=== PATIENT | female | born 1950 ===

== ENCOUNTER 2018-02-24 06:14 | Inpatient (IN) | payer MEDICARE ==
[~2018-02-24] VITALS: Ht 162.6 cm; Wt 62.4 kg
[2018-02-24] VITALS (13 sets, daily range): BP systolic 109–151; BP diastolic 66–84; PULSE 61–81; RESP 18–20; TEMP 97.7–98.6; O2SAT 91–97
[2018-02-24] MEDS ORDERED: AMLO2.5T PO (07:11)
[2018-02-24] MEDS ORDERED: LEVO5TAB8 PO (07:11)
[2018-02-24] MEDS: SODIUM CHLOR 0.9% 1000 ML INJ 1,000 ML IV SCH (07:24)
[2018-02-24] MEDS ORDERED: MIDAZOLAM HCL 2 MG/2 ML VIAL ONE ×2 (07:50→08:19)
--- NOTE | 2018-02-24 08:46 | PD.RAD ---
Post CT Procedure Prog Note Pre Procedure Diagnosis: (1) Mass of left lung Post Procedure Diagnosis: (1) Mass of left lung Procedure Date: Feb 24, 2018 Supervising Radiologist: Art Ortiz Anesthesia: Conscious Sedation Plan of Activity Patient to Unit: R[facility]U Patient Condition: Good See PACS Report for procedural detail/treatment Biopsy Imaging Guidance: CT Side: Left Biopsy Procedure: Lung Site: left upper lobe Specimen: Core Biopsy Plan to [facility] for monitoring and CXR then discharge in 4 hours. Art Ortiz MD Feb 24, 2018 08:46
--- NOTE | 2018-02-24 10:16 | RADRPT ---
EXAM DATE: 02/24/2018 9:19 AM EDT AGE/SEX: 67 years / Female INDICATIONS: Left lung mass. CLINICAL DATA: This is the patient's initial encounter. Patient reports that signs and symptoms have been present for 1 day and indicates a pain score of 0/10. MEDICAL/SURGICAL HISTORY: Hypertension. None. COMPARISON: [facility], CT CHEST W AND W/O CONTRAST, 02/11/2018. . BIOPSY SITE: Left lung left upper lobe MEDICATION(S): 4 mg midazolam (Versed) IV 100 mcg fentanyl (Sublimaze) IV DEVICE(S): 20 gauge Temno core biopsy needle . . PROCEDURE: CT guided Left lung left upper lobe biopsy Prior to the procedure informed consent was obtained. Any appropriate prior imaging studies were rev iewed. Using automated exposure control and adjustment of the mA and/or kV according to patient size , radiation dose was kept as low as reasonably achievable to obtain optimal diagnostic quality images . DICOM format image data is available electronically for review and comparison. The site was prepped in a sterile fashion. Full sterile technique was used, including cap, mask, silvio rile gloves and gown and a large sterile sheet. Hand hygiene and 2% chlorhexidine and/or betadine/al cohol prep was utilized per protocol for cutaneous antisepsis. The skin and subcutaneous tissues wer e infiltrated with local anesthetic solution. With CT guidance the left upper lobe lung mass was localized. Biopsy was performed using the prescrib ed needle as above. Adequate hemostasis was obtained with compression at the puncture site. Follow-up CT scan reveals no pneumothorax or acute abnormality. Conscious sedation was performed with the prescribed dosages and duration as above in the presence of an independent trained radiology nurse to assist in the monitoring of the patient. EKG and oximetry remained stable throughout the procedure. The patient tolerated the procedure well and there were no complications. The patient was sent to Radiology Outpatient Unit in stable condition. FINDINGS: CT images document a smooth mildly lobulated mass in the left upper lobe measuring approximately 3.9 x 3.4 cm. CONCLUSION: 1. Uncomplicated CT guided biopsy of the left upper lobe lung mass. Electronically signed by: Art Ortiz MD 02/24/2018 10:14 AM EDT
--- NOTE | 2018-02-24 10:20 | RADRPT ---
EXAM DATE: 02/24/2018 10:13 AM EDT AGE/SEX: 67 years / Female INDICATIONS: Status post left lung biopsy. CLINICAL DATA: This is the patient's subsequent encounter. Patient reports that signs and symptoms h ave been present for 1 day and indicates a pain score of 0/10. MEDICAL/SURGICAL HISTORY: Hypertension. . COMPARISON: [facility] – [place], CT NEEDLE BIOPSY LUNG, LEFT, 02/24/2018. . FINDINGS: Portable upright expiratory view of the chest demonstrates moderate size left pneumothorax following left upper lobe lung mass biopsy. The left lung mass remains visualized. No pleural effusion is prese nt. CONCLUSION: Moderate size left pneumothorax following recent left lung mass biopsy. Electronically signed by: Art Ortiz MD 02/24/2018 10:19 AM EDT
--- NOTE | 2018-02-24 11:16 | RADRPT ---
EXAM DATE: 02/24/2018 11:08 AM EDT AGE/SEX: 67 years / Female INDICATIONS: Status post left lung biopsy. Evaluate for pneumothorax. CLINICAL DATA: This is the patient's subsequent encounter. Patient reports that signs and symptoms h ave been present for 1 day and indicates a pain score of 0/10. MEDICAL/SURGICAL HISTORY: Hypertension. . COMPARISON: [facility] – [place], [place]ST EXPIRATION ONLY, 02/24/2018. . FINDINGS: Left-sided pneumothorax appears slightly larger when compared to the prior currently measuring approx imately 5.4 cm in depth. No midline shift. 3.4 cm left perihilar mass lesion is again identified. Rig ht lung is clear. Heart size is normal. Osseous structures are intact CONCLUSION: 1. Interval enlargement of the left-sided pneumothorax. No element of tension, however. 2. 3.4 cm left perihilar mass lesion. Electronically signed by: Flo Tejada MD 02/24/2018 11:15 AM EDT
[2018-02-24] MEDS ORDERED: fentaNYL CITRATE 250 MCG/5 ML AMP ONE (11:59)
[2018-02-24] MEDS ORDERED: MIDAZOLAM HCL 5 MG/5 ML VIAL ONE (11:59)
--- NOTE | 2018-02-24 12:42 | PD.RAD ---
Post Procedure Progress Note Pre Procedure Diagnosis: (1) Pneumothorax after biopsy (2) Mass of left lung Post Procedure Diagnosis: (1) Pneumothorax after biopsy (2) Mass of left lung Procedure Date: Feb 24, 2018 Supervising Radiologist: Rudolph Mendieta JR Proceduralist/Assist: Emely Blakely, RT(R)(), Marcus Easley RT(R) Anesthesia: Conscious Sedation Plan of Activity Patient to Unit: ROPU Patient Condition: Good See PACS Report for procedural detail/treatment Drainage Procedure Procedure 1 Side: Left Procedure Type: Chest Tube Non-Tunneled Procedure: Placement Portuguese: 10 Drainage: Pleurovac Findings: Enlarging left pneumothorax after biopsy. Placed left chest tube. Sutured in place. Plan Admit for observation. Jr. Anam,Rudolph Melvin MD Feb 24, 2018 12:42
--- NOTE | 2018-02-24 13:20 | RADRPT ---
EXAM DATE: 02/24/2018 1:08 PM EDT AGE/SEX: 67 years / Female INDICATIONS: Post left chest tube placement. Evaluate for pneumothorax. CLINICAL DATA: This is the patient's subsequent encounter. Patient reports that signs and symptoms h ave been present for 1 day and indicates a pain score of 0/10. MEDICAL/SURGICAL HISTORY: Hypertension. None. [place] [facility] [place]. . FINDINGS: Upright expiratory portable view of the chest demonstrates a normal-sized cardiac silhouette. A left chest tube has been placed in the superior left hemithorax. The pneumothorax has resolved. The left m id lung mass remains visualized. Right lung demonstrates no abnormality. CONCLUSION: 1. The left pneumothorax has resolved following chest tube placement. 2. The left mid lung mass remains visualized. Electronically signed by: Art Ortiz MD 02/24/2018 1:19 PM EDT
--- NOTE | 2018-02-24 13:31 | HHI.HP ---
HPI Service [facility] Hospitalists Primary Care Physician Dr. Abran Bearden Admission Diagnosis Pneumothorax s/p biopsy Chief Complaint: SOB Travel History International Travel<30 Days: No Contact w/Intl Traveler <30 Da: No Traveled to Known Affected Are: No History of Present Illness Mrs. Hart is a pleasant 67 y/o female with HTN, hx of tobacco use and seasonal allergies who was evaluated in interventional radiology today for a CT guided lung biopsy which was performed this morning. She reports that she had an outpt imaging study of the chest which noted the lung mass about 2 weeks ago. She states that this was performed initially because of a "lump" on her xiphoid. She was sent for CT guided biopsy of the lung mass. The CT images noted a smooth mildly lobulated mass in the left upper lobe measuring approximately 3.9 x 3.4cm. Biopsy was performed but unfortunately the pt developed a left sided pneumothorax and a chest tube was placed. The [facility] Hospitalist team was requested to admit the pt for observation and medical management. Review of Systems Constitutional: DENIES: Fever, Chills Respiratory: DENIES: Cough Cardiovascular: DENIES: Chest pain, Lower Extremity Edema Gastrointestinal: DENIES: Abdominal pain, Nausea, Vomiting Genitourinary: DENIES: Urinary incontinence Integumentary: DENIES: Rash Neurologic: DENIES: Headache Psychiatric: DENIES: Confusion Past Family Social History Past Medical History Lung mass HTN Seasonal allergies Past Surgical History None reported Reported Medications Xyzal (Levocetirizine Dihydrochloride) 5 Mg Tablet 1 Tab PO DAILY Amlodipine (Amlodipine Besylate) 2.5 Mg Tab 2.5 Mg PO DAILY Allergies: Coded Allergies: lisinopril (Verified Allergy, Intermediate, Cough, 02/24/18) Family History Father at 86 y/o with prostate cancer, epilepsy, arthritis Mother living, 89 y/o, with type 2 diabetes, schizophrenia Social History (+)Tobacco use, pt has smoked 1ppd x 40+ years Denies any alcohol or illicit drug use Physical Exam Vital Signs Vital Signs Date Time Temp Pulse Resp B/P (MAP) Pulse Ox O2 Delivery O2 Flow Rate FiO2 02/24/18 12:54 63 20 132/84 (100) 95 02/24/18 12:39 61 18 133/82 (99) 95 02/24/18 11:05 67 18 123/75 (91) 95 02/24/18 10:35 68 18 109/69 (82) 93 02/24/18 10:05 69 18 128/76 (93) 92 02/24/18 09:35 67 18 120/73 (89) 93 02/24/18 09:05 66 18 129/75 (93) 95 02/24/18 08:55 Nasal Cannula 2.00 02/24/18 08:50 97.9 72 18 114/66 (82) 91 02/24/18 07:28 94 Room Air 02/24/18 07:09 97.7 81 20 151/81 (104) 94 Physical Exam GENERAL: This is a well-nourished, well-developed patient, in no apparent distress. SKIN: No rashes, ecchymoses or lesions. Cool and dry. HEENT: Atraumatic. Normocephalic. No temporal or scalp tenderness. No scleral icterus. Airway patent. NECK: Trachea midline, supple, nontender. CARDIO: Regular. RESP: CTA bilaterally. CT in place on the left side ABD: +BS, soft, non-tender, nondistended. EXT: Extremities without clubbing, cyanosis, or edema. NEURO: Awake and alert. Motor and sensory grossly within normal limits. Normal speech. Imaging Last Impressions Chest X-Ray 02/24/18 1100 Signed Impressions: CONCLUSION: 1. Interval enlargement of the left-sided pneumothorax. No element of tension, however. 2. 3.4 cm left perihilar mass lesion. Lung Biopsy CT 02/24/18 0000 Signed Impressions: CONCLUSION: 1. Uncomplicated CT guided biopsy of the left upper lobe lung mass. Caprini VTE Risk Assessment Caprini VTE Risk Assessment: Mod/High Risk (score >= 2) Caprini Risk Assessment Model Point Value = 1 Point Value = 2 Point Value = 3 Point Value = 5 Age 41-60 Minor surgery BMI > 25 kg/m2 Swollen legs Varicose veins or History of unexplained or recurrent spontaneous Oral contraceptives or hormone replacement Sepsis (< 1 month) Serious lung disease, including pneumonia (< 1 month) Abnormal pulmonary function Acute myocardial infarction Congestive heart failure (< 1 month) History of inflammatory bowel disease Medical patient at bed rest Age 61-74 Arthroscopic surgery Major open surgery (> 45 min) Laparoscopic surgery (> 45 min) Malignancy Confined to bed (> 72 hours) Immobilizing plaster cast Central venous access Age >= 75 History of VTE Family history of VTE Factor V Leiden Prothrombin [id number] Lupus anticoagulant Anticardiolipin antibodies Elevated serum homocysteine Heparin-induced thrombocytopenia Other congenital or acquired thrombophilia Stroke (< 1 month) Elective arthroplasty Hip, pelvis, or leg fracture Acute spinal cord injury (< 1 month) Prophylaxis Regimen Total Risk Factor Score Risk Level Prophylaxis Regimen 0-1 Low Early ambulation 2 Moderate Order ONE of the following: *Sequential Compression Device (SCD) *Heparin 5000 units SQ BID 3-4 Higher Order ONE of the following medications: *Heparin 5000 units SQ TID *Enoxaparin/Lovenox 40 mg SQ daily (WT < 150 kg, CrCl > 30 mL/min) *Enoxaparin/Lovenox 30 mg SQ daily (WT < 150 kg, CrCl > 10-29 mL/min) *Enoxaparin/Lovenox 30 mg SQ BID (WT < 150 kg, CrCl > 30 mL/min) AND/OR *Sequential Compression Device (SCD) 5 or more Highest Order ONE of the following medications: *Heparin 5000 units SQ TID (Preferred with Epidurals) *Enoxaparin/Lovenox 40 mg SQ daily (WT < 150 kg, CrCl > 30 mL/min) *Enoxaparin/Lovenox 30 mg SQ daily (WT < 150 kg, CrCl > 10-29 mL/min) *Enoxaparin/Lovenox 30 mg SQ BID (WT < 150 kg, CrCl > 30 mL/min) AND *Sequential Compression Device (SCD) Assessment and Plan Problem List: (1) Pneumothorax after biopsy ICD Codes: J95.811 - Postprocedural pneumothorax Status: Acute Plan: - Pt is a 67 y/o female with HTN, hx of tobacco use and seasonal allergies who was evaluated in interventional radiology today for a CT guided lung biopsy which was performed this morning. - The CT images noted a smooth mildly lobulated mass in the left upper lobe measuring approximately 3.9 x 3.4cm. - Biopsy was performed but unfortunately the pt developed a left sided pneumothorax and a chest tube was placed and is currently to suction. - Orders have been written by radiology for repeat imaging in the chest in the morning - Pain control PRN - Tylenol PRN - Zofran PRN - Supportive care - She will have to followup outpt with her PCP for the pathology results from her biopsy (2) Mass of left lung ICD Codes: R91.8 - Other nonspecific abnormal finding of lung field Status: Acute Plan: - See above (3) HTN (hypertension) ICD Codes: I10 - Essential (primary) hypertension Status: Chronic Plan: - Home meds continued Assessment and Plan Patient examined. Assessment and plan formulated with Ashley Hernandez PA-C. I agree with the above. Pt underwent CT guided lung biopsy of suspicious lung mass by IR, Dr. Mendieta (02/24). Post procedure pneumothorax left pneumothorax was identified on CXR. Left Chest tube was place by IR. Repeat CXR in Ashley Chiu Feb 24, 2018 13:31 Gulshan Landaverde DO Feb 25, 2018 09:34
[2018-02-24] MEDS: oxyCODONE/ACETAMINOPHEN 5 MG/325 MG TAB PO PRN ×2 (13:44→21:20)
[2018-02-24] MEDS ORDERED: ACETAMINOPHEN 325 MG TAB PO PRN (13:45)
[2018-02-24] MEDS ORDERED: RESP: ALBUTEROL 2.5 MG/IPRATROPIUM 0.5 MG NEB (PRN) NEB (13:45)
[2018-02-24] MEDS ORDERED: ONDANSETRON ODT 4 MG TAB SL PRN (13:45)
[2018-02-24] MEDS ORDERED: cloNIDine HCL 0.1 MG TAB PO PRN (17:15)
[2018-02-25] VITALS: BP 136/77; PULSE 59; RESP 18; TEMP 98.4; O2SAT 96
[2018-02-25 04:00] VITALS: BP 142/84; PULSE 66; RESP 18; TEMP 97.9; O2SAT 96
--- NOTE | 2018-02-25 06:49 | RADRPT ---
EXAM DATE: 02/25/2018 6:44 AM EDT AGE/SEX: 67 years / Female INDICATIONS: One day post lung biopsy, evaluate left pneumothorax and chest tube, cough, no shortnes s of breath, pain under left scapula CLINICAL DATA: This is the patient's subsequent encounter. Patient reports that signs and symptoms h ave been present for 2 days and indicates a pain score of 5/10. MEDICAL/SURGICAL HISTORY: . left lung mass . left lung biopsyleft chest tube [place] [facility] [place]. . FINDINGS: A small left-sided chest tube remains in place. No definite pneumothorax. The right lung is clear. Th ere is a stable mass in the mid left lung. No pleural effusions. No significant changes compared to t he prior study. Bony structures are stable. CONCLUSION: 1. Left chest tube in place. No pneumothorax. 2. No significant changes compared to the prior study. Electronically signed by: Flo Jay MD 02/25/2018 6:47 AM EDT
[2018-02-25] MEDS: SODIUM CHLOR 0.9% 1000 ML INJ 1,000 ML IV SCH (07:30)
[2018-02-25 08:00] VITALS: BP 151/85; PULSE 68; RESP 19; TEMP 98.6; O2SAT 93
--- NOTE | 2018-02-25 08:18 | RADRPT ---
EXAM DATE: 02/24/2018 12:59 PM EDT AGE/SEX: 67 years / Female INDICATIONS: Patient presents with enlarging pneumothorax post lung biopsy in need of chest tube mustapha cement. CLINICAL DATA: This is the patient's initial encounter. Patient reports that signs and symptoms have been present for 1 day and indicates a pain score of 0/10. MEDICAL/SURGICAL HISTORY: Hypertension. Lung biopsy [place] [facility] [place]25/2018. . FLUORO TIME (min): 1.41 IMAGE SERIES: 2 ACCESS SITE: SEDATION TIME (min): 15 MEDICATION(S): 1.5mg midazolam (Versed) IV 100mcg fentanyl (Sublimaze) IV DEVICE(S): 10 Uzbek non-locking catheter Giovanni . . PROCEDURE: 1. Fluoroscopically guided chest tube placement. 2. Conscious sedation with continuous EKG and oximetry monitoring. The risks, benefits and alternatives to the procedure were explained and verbal and written consent w as obtained. The site was prepped in sterile fashion. Full sterile technique was used, including ca p, mask, sterile gloves and gown and a large sterile sheet. Hand hygiene and 2% chlorhexidine and/or betadine/alcohol prep was utilized per protocol for cutaneous antisepsis. The skin and subcutaneous tissues were infiltrated with local anesthetic solution. With fluoroscopic guidance the chest was punctured between the first and second interspace and the pr escribed catheter was placed in the lung apex. Wall suction was applied. Post procedure images demon strate satisfactory position of the tube. The catheter was sutured in place and a Percu-Stay was ray lied. Conscious sedation was performed with the prescribed dosages and duration as above in the presence of an independent trained radiology nurse to assist in the monitoring of the patient. EKG and oximetry remained stable throughout the procedure. The patient tolerated the procedure well and there were n o complications. The patient was sent to post anesthesia recovery in stable condition. CONCLUSION: 1. Uncomplicated left chest tube placement as above. Electronically signed by: Rudolph Mendieta MD 02/25/2018 8:17 AM EDT
[2018-02-25] MEDS ORDERED: amLODIPine BESYLATE 5 MG TAB PO SCH (09:00)
[2018-02-25 10:10] VITALS: O2SAT 93
--- NOTE | 2018-02-25 11:48 | RADRPT ---
EXAM DATE: 02/25/2018 11:44 AM EDT AGE/SEX: 67 years / Female INDICATIONS: Pneumothorax. CLINICAL DATA: This is the patient's subsequent encounter. Patient reports that signs and symptoms h ave been present for 2 days and indicates a pain score of 0/10. MEDICAL/SURGICAL HISTORY: . left lung mass . Left lung biopsy . left chest tube COMPARISON: [facility] – [place], CHEST EXPIRATION ONLY, 02/25/2018. . FINDINGS: Portable upright expiratory view of the chest demonstrates left chest tube in place. No pneumothorax is visualized. Left mid lung mass remains visualized. CONCLUSION: 1. No pneumothorax is visualized. Chest tube remains present. 2. Stable left midlung mass. Electronically signed by: Art Ortiz MD 02/25/2018 11:46 AM EDT
[2018-02-25 12:00] VITALS: BP 148/81; PULSE 69; RESP 17; TEMP 98.3; O2SAT 92
--- NOTE | 2018-02-25 14:22 | RADRPT ---
EXAM DATE: 02/25/2018 2:14 PM EDT AGE/SEX: 67 years / Female INDICATIONS: Post chest tube removal. CLINICAL DATA: This is the patient's subsequent encounter. Patient reports that signs and symptoms h ave been present for 1 day and indicates a pain score of 0/10. MEDICAL/SURGICAL HISTORY: Hypertension. None. COMPARISON: No prior [place] exams available for comparison. FINDINGS: A single AP view of the chest a 4 cm left hilar lung mass. No pneumothorax is identified. The cardio mediastinal contours are unremarkable. Osseous structures are intact. CONCLUSION: 4 cm left perihilar lung mass Electronically signed by: Hayden Taylor MD 02/25/2018 2:20 PM EDT
--- NOTE | 2018-02-25 15:03 | HHI.DCPOC ---
Discharge Care Plan Diagnosis: (1) HTN (hypertension) (2) Pneumothorax after biopsy (3) Mass of left lung Goals to Promote Your Health * To prevent worsening of your condition and complications * To maintain your health at the optimal level Directions to Meet Your Goals Take your medications as prescribed Follow your dietary instruction Follow activity as directed Keep your appointments as scheduled Take your immunizations and boosters as scheduled If your symptoms worsen call your PCP, if no PCP go to Urgent Care Center or Emergency Room Smoking is Dangerous to Your Health. Avoid second hand smoke Call the 24-hour hour crisis hotline for domestic abuse at Ashley Hernandez Feb 25, 2018 15:03
--- NOTE | 2018-02-25 15:28 | HHI.PR ---
Subjective Remarks Pt had CT removed today and is off supplemental O2 She is ambulating without difficulty and is anxious for discharge Objective Vitals Vital Signs Date Time Temp Pulse Resp B/P (MAP) Pulse Ox O2 Delivery O2 Flow Rate FiO2 02/25/18 10:10 93 02/25/18 08:00 98.6 68 19 151/85 (107) 93 02/25/18 04:00 97.9 66 18 142/84 (103) 96 02/25/18 00:19 97 Nasal Cannula 2.00 02/25/18 00:00 98.4 59 18 136/77 (96) 96 02/24/18 22:20 18 02/24/18 20:00 98.6 70 18 141/77 (98) 94 02/24/18 19:57 97 Nasal Cannula 2.00 02/24/18 16:55 98.5 78 18 143/76 (98) 97 Imaging Last Impressions Chest X-Ray 02/25/18 1400 Signed Impressions: CONCLUSION: 4 cm left perihilar lung mass Lung Biopsy CT 02/24/18 0000 Signed Impressions: CONCLUSION: 1. Uncomplicated CT guided biopsy of the left upper lobe lung mass. Chest Tube Insertion 02/24/18 0000 Signed Impressions: CONCLUSION: 1. Uncomplicated left chest tube placement as above. Last Impressions Chest X-Ray 02/24/18 1100 Signed Impressions: CONCLUSION: 1. Interval enlargement of the left-sided pneumothorax. No element of tension, however. 2. 3.4 cm left perihilar mass lesion. Lung Biopsy CT 02/24/18 0000 Signed Impressions: CONCLUSION: 1. Uncomplicated CT guided biopsy of the left upper lobe lung mass. Objective Remarks General: NAD, AAOx3 Chest: CTA Cardiac: Regular Abd: +BS, soft ND/NT Ext: No edema A/P Problem List: (1) Pneumothorax after biopsy ICD Codes: J95.811 - Postprocedural pneumothorax Status: Acute Plan: - Pt is a 67 y/o female with HTN, hx of tobacco use and seasonal allergies who was evaluated in interventional radiology today for a CT guided lung biopsy which was performed this morning. - The CT images noted a smooth mildly lobulated mass in the left upper lobe measuring approximately 3.9 x 3.4cm. - Biopsy was performed but unfortunately the pt developed a left sided pneumothorax and a chest tube was placed and is currently to suction. - Repeat imaging in the chest in the morning with resolution of the pneumothorax and chest tube was removed - Pt has been cleared by - Pain control PRN - Tylenol PRN - Zofran PRN - Supportive care - She will have to followup outpt with her PCP for the pathology results from her biopsy (2) Mass of left lung ICD Codes: R91.8 - Other nonspecific abnormal finding of lung field Status: Acute Plan: - See above (3) HTN (hypertension) ICD Codes: I10 - Essential (primary) hypertension Status: Chronic Plan: - Home meds continued Ashley Hernandez Feb 25, 2018 15:28
[2018-02-25 16:00] VITALS: BP 128/78; PULSE 73; RESP 17; TEMP 97.9; O2SAT 94
[2018-02-25] MEDS ORDERED: OXYC1TAB63 PO (16:10)
--- NOTE | 2018-02-25 17:06 | RADRPT ---
EXAM DATE: 02/25/2018 4:13 PM EDT AGE/SEX: 67 years / Female INDICATIONS: Chest tube removal, pneumothorax CLINICAL DATA: This is the patient's encounter. Patient reports that signs and symptoms have been pr esent for and indicates a pain score of . MEDICAL/SURGICAL HISTORY: COMPARISON: . DEVICE(S): PROCEDURE: 1. Chest tube removal. Using aseptic technique the previously placed chest tube was easily removed in one piece and Vaseline gauze and sterile dressing was applied. Chest radiograph is to be obtained. CONCLUSION: 1. Uncomplicated chest tube removal. Electronically signed by: Rudolph Mendieta MD 02/25/2018 5:05 PM EDT
== END 2018-02-25 18:22 | disposition home or self-care (01) | DRG 201 ==
LOC: HRAD 06:14 → HRIP 06:16 → HRAD 16:42 → N05A 16:46 → OBSVTOIN 02-25 08:57
PROVIDERS: ADMIT Family Medicine; ATTEND Family Medicine
PROC: 0BBG3ZX Excision of Left Upper Lung Lobe, Percutaneous Approach, Diagnostic (ICD-10-PCS; principal; 2018-02-24)
PROC: 0W9B30Z Drainage of Left Pleural Cavity with Drainage Device, Percutaneous Approach (ICD-10-PCS; 2018-02-24)
PROC: 0WP8X0Z Removal of Drainage Device from Chest Wall, External Approach (ICD-10-PCS; 2018-02-25)
DX: J95.811 Postprocedural pneumothorax (principal); I10 Essential (primary) hypertension; R91.8 Other nonspecific abnormal finding of lung field; F17.210 Nicotine dependence, cigarettes, uncomplicated; J30.2 Other seasonal allergic rhinitis
CPT/HCPCS: 32405; 32557; 71045; 77012; 88305; 99152; 99153; C1729; C1769; J2250; J3010; J7030